=== PATIENT | female | born 1970 | race Two or more races ===

== ENCOUNTER 2018-08-27 14:29 | Outpatient (CLI) | payer OTHER ==
[~2018-08-27 14:29] MED LIST: TESSALON PERLE100 M1
== END 2018-08-27 14:37 | disposition home or self-care (01) ==
LOC: RAD 14:29
DX: M15.8 Other polyosteoarthritis (principal)

== ENCOUNTER 2018-09-17 09:09 | Outpatient (CLI) | payer OTHER | END 2018-09-17 09:27 | disposition home or self-care (01) | LOC: RAD 09:09 | DX: M70.61 Trochanteric bursitis, right hip (principal); M70.62 Trochanteric bursitis, left hip ==

== ENCOUNTER → 2019-08-10 | Emergency (ER) | payer OTHER ==
[~2019-08-10] VITALS: Ht 165.1 cm; Wt 54.4 kg
[~2019-08-10] MED LIST changes: +SYNTHROID100 MCG PO; +ZYRTEC10 M3 PO
== END | disposition left against medical advice (07) ==
LOC: ER 11:07
DX: Z53.20 Procedure and treatment not carried out because of patient's decision for unspecified reasons (principal)

== ENCOUNTER 2021-06-23 09:00 | Outpatient (CLI) | payer OTHER | END 2021-06-23 09:30 | disposition home or self-care (01) | LOC: PPH VACUNA 09:00 | PROVIDERS: ATTEND Emergency Medicine Pediatric Emergency Medicine | DX: Z23 Encounter for immunization (principal) ==

== ENCOUNTER 2021-11-16 15:21 | Outpatient (CLI) | payer OTHER | END 2021-11-16 15:33 | disposition home or self-care (01) | LOC: RAD 15:21 | PROVIDERS: ATTEND Orthopaedic Surgery | DX: M25.571 Pain in right ankle and joints of right foot (principal) ==

== ENCOUNTER 2021-12-22 09:50 | Outpatient (CLI) | payer OTHER | END 2021-12-22 09:53 | disposition home or self-care (01) | LOC: SONOGRAMA 09:50 | PROVIDERS: ATTEND Orthopaedic Surgery | DX: M79.671 Pain in right foot (principal) ==

== ENCOUNTER 2022-01-14 08:58 | Outpatient (CLI) | payer OTHER | END 2022-01-14 09:08 | disposition home or self-care (01) | LOC: LAB 08:58 | PROVIDERS: ATTEND Orthopaedic Surgery | DX: E03.9 Hypothyroidism, unspecified (principal); I10 Essential (primary) hypertension; E11.9 Type 2 diabetes mellitus without complications; D64.89 Other specified anemias; D51.9 Vitamin B12 deficiency anemia, unspecified ==

== ENCOUNTER 2022-03-07 08:38 | Outpatient (CLI) | payer OTHER | END 2022-03-07 08:45 | disposition home or self-care (01) | LOC: RAD 08:38 | PROVIDERS: ATTEND Physical Medicine & Rehabilitation | DX: M25.571 Pain in right ankle and joints of right foot (principal); M79.671 Pain in right foot ==

== ENCOUNTER 2022-05-02 10:44 | Outpatient (CLI) | payer OTHER | END 2022-05-02 10:53 | disposition home or self-care (01) | LOC: RAD 10:44 | PROVIDERS: ATTEND Specialist | DX: M84.471A Pathological fracture, right ankle, initial encounter for fracture (principal) ==

== ENCOUNTER 2022-07-06 15:19 | Outpatient (CLI) | payer OTHER | END 2022-07-06 15:31 | disposition home or self-care (01) | LOC: RAD 15:19 | PROVIDERS: ATTEND Orthopaedic Surgery | DX: Q65.89 Other specified congenital deformities of hip (principal); M25.851 Other specified joint disorders, right hip; M25.852 Other specified joint disorders, left hip ==

== ENCOUNTER 2023-07-19 10:39 | Outpatient (CLI) | payer OTHER | END 2023-07-19 10:47 | disposition home or self-care (01) | LOC: RAD 10:39 | PROVIDERS: ATTEND Internal Medicine Pulmonary Disease | DX: J45.20 Mild intermittent asthma, uncomplicated (principal) ==

== ENCOUNTER 2024-02-07 12:01 | Outpatient (CLI) | payer OTHER | END 2024-02-07 12:03 | disposition home or self-care (01) | LOC: RAD 12:01 | PROVIDERS: ATTEND Internal Medicine | DX: J20.9 Acute bronchitis, unspecified (principal) ==

== ENCOUNTER → 2025-03-16 | Emergency (ER) | payer OTHER | END | disposition left against medical advice (07) | LOC: ER 11:58 | DX: Z53.21 Procedure and treatment not carried out due to patient leaving prior to being seen by health care provider (principal) ==